=== PATIENT | female | born 1940 | race Caucasian/White ===

== ENCOUNTER 2017-03-24 17:01 | Inpatient (IN) | payer MEDICARE ==
[~2017-03-24] VITALS: Ht 165.1 cm; Wt 70.3 kg
[2017-03-24] MEDS ORDERED: KETOROLAC 30 MG/1 ML IVPush PRN (18:00)
[2017-03-24] MEDS ORDERED: CEFTRIAXONE PMX 1GM/50ML 50 ML IV SCH (18:00)
[2017-03-24] MEDS ORDERED: ONDANSETRON 2MG/ML, 2ML IVPush PRN (18:00)
[2017-03-24] MEDS ORDERED: POLYETHYLENE GLYCOL 17 GM PACKET PO PRN (18:00)
[2017-03-24] MEDS ORDERED: ACETAMINOPHEN 325 MG TABLET PO PRN (18:00)
[2017-03-24] MEDS ORDERED: BISACODYL 10 MG SUPP PR PRN (18:00)
[2017-03-24] MEDS ORDERED: NS + 20MEQ KCL 1,000 ML IV ONE (18:22)
[2017-03-24] MEDS ORDERED: CEFTRIAXONE PMX 1GM/50ML 50 ML ONE (18:22)
[2017-03-24 18:30] LABS: FREE T4 (FREE THYROXINE) 0.97 ng/dL (0.76-1.46); TROPONIN I 0.021 ng/mL (0.000-0.045)
[2017-03-24] MEDS ORDERED: KETOROLAC 30 MG/1 ML ONE (19:12)
[2017-03-24] MEDS: NS + 20MEQ KCL 1,000 ML IV SCH (19:34)
[2017-03-24] MEDS ORDERED: TRAM50TA2 PO (19:45)
[2017-03-24] MEDS ORDERED: TRIA1CAP3 PO (19:45)
[2017-03-24] MEDS ORDERED: METF500T27 PO (19:45)
[2017-03-24] MEDS ORDERED: LEVO112T2 PO (19:45)
[2017-03-24] MEDS ORDERED: POTA10TA5 PO (19:45)
[2017-03-24] MEDS ORDERED: DILT120C64 PO (19:45)
[2017-03-24] MEDS ORDERED: ESZO3TAB28 PO (19:45)
[2017-03-24] MEDS ORDERED: APIX5TAB PO (19:45)
[2017-03-24] MEDS ORDERED: MECL-76 PO (19:45)
[2017-03-24] MEDS ORDERED: ATEN-104 PO (19:45)
[2017-03-24] MEDS ORDERED: SERT100T5 PO (19:45)
[2017-03-24 19:57] LABS: HEMOGLOBIN A1C 7.5 % (4.2-6.3)
[2017-03-24 21:02] VITALS: BP 123/78
[2017-03-24] MEDS: ZOLPIDEM 5MG TABLET PO SCH (21:29)
[2017-03-24] MEDS: MECLIZINE CHEWABLE 25 MG TAB PO SCH (21:30)
[2017-03-24] MEDS: APIXABAN 5 MG TABLET PO SCH (21:34)
[2017-03-24] MEDS: SERTRALINE 100MG TABLET PO SCH (21:34)
[2017-03-24] MEDS: DIPHENHYDRAMINE 25 MG CAPSULE PO PRN (22:47)
[2017-03-25 00:08] LABS: TROPONIN I 0.035 ng/mL (0.000-0.045)
[2017-03-25] MEDS ORDERED: KETOROLAC 30 MG/1 ML ONE (00:30)
[2017-03-25] MEDS: KETOROLAC 30 MG/1 ML IVPush PRN ×2 (00:32→08:17)
[2017-03-25] MEDS ORDERED: MAGNESIUM SULFATE 3 GM in SODIUM CHLORIDE 0.9% 100 ML IV ONE (01:00)
[2017-03-25] MEDS: GUAIFENESIN/DM 200-20MG, 10ML UDC PO PRN ×3 (03:00→22:42)
[2017-03-25] MEDS: CYCLOBENZAPRINE 10 MG TABLET PO PRN ×2 (03:34→20:23)
[2017-03-25 03:58] VITALS: BP 135/85
[2017-03-25 05:18] LABS: BASOPHILS # (AUTO) 0.02 x10^3/uL (0-0.1); BASOPHILS % (AUTO) 0 % (0-1); EOSINOPHILS # (AUTO) 0.01 x10^3/uL (0-0.4); EOSINOPHILS % (AUTO) 0 % (1-7); LYMPHOCYTES # (AUTO) 1.02 x10^3/uL (1-3.4); LYMPHOCYTES % (AUTO) 15 % (22-44); MD NO; MEAN CORPUSCULAR HEMOGLOBIN 30.5 pg (27.0-34.8); MEAN CORPUSCULAR HGB CONC 33.9 g/dL (32.4-35.8); MEAN PLATELET VOLUME 8.9 fL (7.4-10.4); MONOCYTES # (AUTO) 0.75 x10^3/uL (0.2-0.8); MONOCYTES % (AUTO) 11 % (2-9); NEUTROPHILS # (AUTO) 4.85 x10^3/uL (1.8-6.8); NEUTROPHILS % (AUTO) 73 % (42-75); PLATELET COUNT 160 x10^3/uL (130-400); RED BLOOD COUNT 4.33 x10^6/uL (3.82-5.3); RED CELL DISTRIBUTION WIDTH 14.3 % (9.6-15.2)
[2017-03-25 05:26] LABS: ANION GAP 8 mmol/L (5-15); CALCIUM 8.1 mg/dL (8.5-10.1); CHLORIDE 105 mmol/L (98-107)
[2017-03-25 05:29] LABS: ALANINE AMINOTRANSFERASE 25 U/L (12-78); ALKALINE PHOSPHATASE 75 U/L (45-117); BILIRUBIN,TOTAL 0.4 mg/dL (0.2-1.0); CREATININE 0.96 mg/dL (0.55-1.02); TOTAL PROTEIN 6.1 g/dL (6.4-8.2)
[2017-03-25] MEDS: NS + 20MEQ KCL 1,000 ML IV SCH ×2 (06:11→18:35)
[2017-03-25] MEDS: LEVOTHYROXINE 112 MCG TABLET PO SCH (06:11)
[2017-03-25] MEDS ORDERED: POTASSIUM CHLORIDE 20 MEQ TAB.ER.PRT PO ONE (07:30)
[2017-03-25] MEDS: APIXABAN 5 MG TABLET PO SCH ×3 (08:15→20:23)
[2017-03-25] MEDS: DILTIAZEM 120 MG CAP.ER.24H PO SCH ×2 (08:15→10:04)
[2017-03-25] MEDS: TRIAMTERENE-HCTZ 37.5/25 MG TABLET PO SCH ×2 (08:16→09:20)
[2017-03-25] MEDS: SENNA/DOCUSATE TABLET PO SCH ×2 (08:16→09:20)
[2017-03-25] MEDS: POTASSIUM CHLORIDE 10 MEQ TABLET.ER PO SCH ×2 (08:16→09:20)
[2017-03-25] MEDS: ATENOLOL 50 MG TABLET PO SCH ×2 (08:17→09:20)
[2017-03-25 09:00] VITALS: BP 134/85
[2017-03-25] MEDS ORDERED: metFORMIN XR 500 MG TAB.ER.24H PO SCH (09:00)
[2017-03-25] MEDS ORDERED: MORPHINE SULFATE 4 MG/ML, 1ML IVPush PRN (11:00)
[2017-03-25 15:57] VITALS: BP 129/76
[2017-03-25] MEDS: CEFTRIAXONE 1,000 MG in DEXTROSE 5% 50 ML IVPB SCH (18:35)
[2017-03-25 19:12] VITALS: BP 146/97
[2017-03-25] MEDS: SERTRALINE 100MG TABLET PO SCH (20:23)
[2017-03-25] MEDS: MECLIZINE CHEWABLE 25 MG TAB PO SCH (20:27)
[2017-03-25] MEDS: ZOLPIDEM 5MG TABLET PO SCH (20:27)
[2017-03-25] MEDS: DIPHENHYDRAMINE 25 MG CAPSULE PO PRN (22:42)
[2017-03-25] MEDS ORDERED: LORazepam 2 MG/ML, 1ML IVPush ONE (23:30)
[2017-03-26] MEDS ORDERED: DILTIAZEM 5 MG/ML, 5ML IVPush ONE (00:05)
[2017-03-26 00:36] VITALS: BP 129/77
[2017-03-26] MEDS ORDERED: DILTIAZEM 125 MG in SODIUM CHLORIDE 0.9% 100 ML IV SCH (02:00)
[2017-03-26] MEDS: NS + 20MEQ KCL 1,000 ML IV SCH (04:00)
[2017-03-26] MEDS: LEVOTHYROXINE 112 MCG TABLET PO SCH (06:00)
[2017-03-26 06:17] LABS: CHLORIDE 107 mmol/L (98-107)
[2017-03-26 06:28] LABS: ANION GAP 11 mmol/L (5-15); CALCIUM 8.3 mg/dL (8.5-10.1); CREATININE 1.09 mg/dL (0.55-1.02)
[2017-03-26 06:35] VITALS: BP 119/77
[2017-03-26] MEDS: ATENOLOL 50 MG TABLET PO SCH (09:00)
[2017-03-26] MEDS: APIXABAN 5 MG TABLET PO SCH ×2 (09:40→20:53)
[2017-03-26] MEDS: SENNA/DOCUSATE TABLET PO SCH (09:40)
[2017-03-26] MEDS: TRIAMTERENE-HCTZ 37.5/25 MG TABLET PO SCH (09:40)
[2017-03-26] MEDS: POTASSIUM CHLORIDE 10 MEQ TABLET.ER PO SCH (09:40)
[2017-03-26] MEDS: INSULIN ASPART 100 UNITS/ML, PEN SQ-INSULIN SCH ×4 (09:40→20:59)
[2017-03-26] MEDS: DILTIAZEM 120 MG CAP.ER.24H PO SCH (09:42)
[2017-03-26] MEDS ORDERED: FUROSEMIDE 20 MG/2 ML IV ONE (11:30)
[2017-03-26 12:39] LABS: TROPONIN I 0.148 ng/mL (0.000-0.045)
[2017-03-26] MEDS: LISINOPRIL 5 MG TABLET PO SCH (12:54)
[2017-03-26 15:38] VITALS: BP 129/85
[2017-03-26 18:08] LABS: TROPONIN I 0.119 ng/mL (0.000-0.045)
[2017-03-26 19:39] VITALS: BP 145/88
[2017-03-26] MEDS: ATORVASTATIN 20 MG TABLET PO SCH (20:52)
[2017-03-26] MEDS: GUAIFENESIN/DM 200-20MG, 10ML UDC PO PRN (20:52)
[2017-03-26] MEDS: CEFTRIAXONE 1,000 MG in DEXTROSE 5% 50 ML IVPB SCH (20:52)
[2017-03-26] MEDS: SERTRALINE 100MG TABLET PO SCH (20:53)
[2017-03-27 02:00] VITALS: BP 149/84
[2017-03-27] MEDS: LEVOTHYROXINE 112 MCG TABLET PO SCH (05:46)
[2017-03-27] MEDS: INSULIN ASPART 100 UNITS/ML, PEN SQ-INSULIN SCH ×4 (07:00→21:06)
[2017-03-27 07:08] VITALS: BP 157/83
[2017-03-27 08:02] LABS: ANION GAP 9 mmol/L (5-15); CALCIUM 8.4 mg/dL (8.5-10.1); CHLORIDE 101 mmol/L (98-107); CREATININE 0.69 mg/dL (0.55-1.02)
[2017-03-27] MEDS ORDERED: REGADENOSON 0.4 MG/5 ML SYRINGE ONE (08:30)
[2017-03-27] MEDS: DILTIAZEM 120 MG CAP.ER.24H PO SCH ×2 (09:00→13:10)
[2017-03-27] MEDS: POTASSIUM CHLORIDE 10 MEQ TABLET.ER PO SCH (09:00)
[2017-03-27] MEDS: APIXABAN 5 MG TABLET PO SCH ×3 (09:00→21:07)
[2017-03-27] MEDS: SENNA/DOCUSATE TABLET PO SCH ×2 (09:00→13:10)
[2017-03-27] MEDS: ATENOLOL 50 MG TABLET PO SCH ×2 (09:00→13:11)
[2017-03-27] MEDS: LISINOPRIL 5 MG TABLET PO SCH ×2 (09:00→13:11)
[2017-03-27 13:39] VITALS: BP 142/86
[2017-03-27] MEDS: KETOROLAC 30 MG/1 ML IVPush PRN (15:29)
[2017-03-27] MEDS: POTASSIUM CHLORIDE 20 MEQ TAB.ER.PRT PO SCH (16:23)
[2017-03-27 18:33] VITALS: BP 111/66
[2017-03-27] MEDS: CEFTRIAXONE 1,000 MG in DEXTROSE 5% 50 ML IVPB SCH (21:04)
[2017-03-27] MEDS: GUAIFENESIN/DM 200-20MG, 10ML UDC PO PRN (21:06)
[2017-03-27] MEDS: SERTRALINE 100MG TABLET PO SCH (21:07)
[2017-03-27] MEDS: ATORVASTATIN 20 MG TABLET PO SCH (21:07)
[2017-03-28 02:42] VITALS: BP 127/77
[2017-03-28 05:10] LABS: CHLORIDE 105 mmol/L (98-107)
[2017-03-28 05:15] LABS: ANION GAP 10 mmol/L (5-15); CALCIUM 8.7 mg/dL (8.5-10.1); CREATININE 0.75 mg/dL (0.55-1.02)
[2017-03-28] MEDS: LEVOTHYROXINE 112 MCG TABLET PO SCH (05:48)
[2017-03-28] MEDS: INSULIN ASPART 100 UNITS/ML, PEN SQ-INSULIN SCH ×2 (07:00→11:22)
[2017-03-28 07:56] VITALS: BP 139/75
[2017-03-28] MEDS: ATENOLOL 50 MG TABLET PO SCH (08:59)
[2017-03-28] MEDS: APIXABAN 5 MG TABLET PO SCH (08:59)
[2017-03-28] MEDS: SENNA/DOCUSATE TABLET PO SCH (09:00)
[2017-03-28] MEDS: LISINOPRIL 5 MG TABLET PO SCH (09:00)
[2017-03-28] MEDS: DILTIAZEM 120 MG CAP.ER.24H PO SCH (09:01)
[2017-03-28] MEDS: POTASSIUM CHLORIDE 20 MEQ TAB.ER.PRT PO SCH (09:01)
[2017-03-28] MEDS ORDERED: CEFD300C37 PO (09:16)
[2017-03-28] MEDS ORDERED: LISI5TAB7 PO (09:16)
[2017-03-28] MEDS ORDERED: ATOR20TA9 PO (09:16)
[2017-03-28 12:42] VITALS: BP 128/86
[2017-03-28] MEDS: GUAIFENESIN/DM 200-20MG, 10ML UDC PO PRN (14:23)
== END 2017-03-28 14:50 | disposition home or self-care (01) | DRG 291 ==
LOC: ED 17:37 → EDIP 17:50 → 4EST 20:37 → DCLOUNGE 03-28 14:36
PROVIDERS: ADMIT Internal Medicine; ATTEND Internal Medicine
DX: I11.0 Hypertensive heart disease with heart failure (principal); G93.41 Metabolic encephalopathy; D68.69 Other thrombophilia; E11.65 Type 2 diabetes mellitus with hyperglycemia; E83.42 Hypomagnesemia; I08.3 Combined rheumatic disorders of mitral, aortic and tricuspid valves; N39.0 Urinary tract infection, site not specified; I24.8 Other forms of acute ischemic heart disease; I50.21 Acute systolic (congestive) heart failure; I42.9 Cardiomyopathy, unspecified; I48.2 Chronic atrial fibrillation; E87.6 Hypokalemia; F32.9 Major depressive disorder, single episode, unspecified; E03.9 Hypothyroidism, unspecified; B96.20 Unspecified Escherichia coli [E. coli] as the cause of diseases classified elsewhere; E11.9 Type 2 diabetes mellitus without complications; I27.20 Pulmonary hypertension, unspecified; I44.7 Left bundle-branch block, unspecified; Z85.3 Personal history of malignant neoplasm of breast; Z90.13 Acquired absence of bilateral breasts and nipples; Z79.01 Long term (current) use of anticoagulants; Z92.21 Personal history of antineoplastic chemotherapy; Z92.3 Personal history of irradiation; Z41.1 Encounter for cosmetic surgery; Z82.49 Family history of ischemic heart disease and other diseases of the circulatory system
CPT/HCPCS: 36415; 71045; 78452; 80048; 80053; 82962; 83036; 83735; 84439; 84443; 84484; 85025; 87040; 93005; 93017; 93306; J0696; J1815; J1885; J2785; J3475; J3480; A9502; C9898; J1940; J2060; Q0163

== ENCOUNTER 2017-03-30 09:19 | Emergency (ER) | payer MEDICARE ==
[~2017-03-30] VITALS: Ht 165.1 cm; Wt 65.9 kg
[~2017-03-30 09:19] MED LIST: APIX5TAB PO; ATEN-104 PO; ATOR20TA9 PO; CEFD300C37 PO; DILT120C64 PO; ESZO3TAB28 PO; LEVO112T2 PO; LISI5TAB7 PO; MECL-76 PO; METF500T27 PO; POTA10TA5 PO; SERT100T5 PO; TRAM50TA2 PO; TRIA1CAP3 PO
[2017-03-30] MEDS ORDERED: METOPROLOL TARTRATE 50 MG TABLET PO ONE (11:00)
[2017-03-30] MEDS ORDERED: METOPROLOL TARTRATE 50 MG TABLET ONE (11:04)
[2017-03-30] MEDS ORDERED: METO-95 PO (11:11)
[2017-03-30 11:35] LABS: BASOPHILS # (AUTO) 0.02 x10^3/uL (0-0.1); BASOPHILS % (AUTO) 0 % (0-1); EOSINOPHILS # (AUTO) 0.11 x10^3/uL (0-0.4); EOSINOPHILS % (AUTO) 1 % (1-7); LYMPHOCYTES # (AUTO) 1.44 x10^3/uL (1-3.4); LYMPHOCYTES % (AUTO) 17 % (22-44); MD NO; MEAN CORPUSCULAR HEMOGLOBIN 30.2 pg (27.0-34.8); MEAN CORPUSCULAR HGB CONC 33.5 g/dL (32.4-35.8); MEAN CORPUSCULAR VOLUME 90.2 fL (80-100); MEAN PLATELET VOLUME 8.6 fL (7.4-10.4); MONOCYTES # (AUTO) 0.63 x10^3/uL (0.2-0.8); MONOCYTES % (AUTO) 7 % (2-9); NEUTROPHILS % (AUTO) 74 % (42-75); PLATELET COUNT 210 x10^3/uL (130-400); RED BLOOD COUNT 4.58 x10^6/uL (3.82-5.3); RED CELL DISTRIBUTION WIDTH 14.5 % (9.6-15.2)
[2017-03-30 11:47] LABS: ALBUMIN 2.9 g/dL (3.4-5.0); CALCIUM 9.1 mg/dL (8.5-10.1); CHLORIDE 105 mmol/L (98-107); CREATININE 0.71 mg/dL (0.55-1.02)
[2017-03-30 11:49] LABS: ANION GAP 11 mmol/L (5-15); TROPONIN I < 0.015 ng/mL (0.000-0.045)
[2017-03-30 13:03] VITALS: BP 142/105
== END 2017-03-30 13:05 | disposition home or self-care (01) ==
LOC: ED 11:45
DX: J20.8 Acute bronchitis due to other specified organisms (principal); B96.89 Other specified bacterial agents as the cause of diseases classified elsewhere; I48.91 Unspecified atrial fibrillation; R60.0 Localized edema; I10 Essential (primary) hypertension
CPT/HCPCS: 36415; 71045; 80048; 82040; 83880; 84484; 85025; 93005; 99285